=== PATIENT | female | born 1995 | race Caucasian/White ===

== ENCOUNTER 2021-09-26 10:03 | Emergency (ER) | payer OTHER ==
[2021-09-26 10:35] VITALS: TEMP 97.9; BMI 29.2
[2021-09-26] MEDS ORDERED: ALBUTEROL SO4 2.5/IPRATROPIUM 0.5 INH SOL 3 ML VIAL.NEB. NEB ONE (11:16)
[2021-09-26 12:22] VITALS: BP 127/75; PULSE 85
== END 2021-09-26 12:40 | disposition home or self-care (01) ==
LOC: JER 10:03
PROC: 3E0F7GC Introduction of Other Therapeutic Substance into Respiratory Tract, Via Natural or Artificial Opening (ICD-10-PCS; principal; 2021-09-26)
DX: J45.901 Unspecified asthma with (acute) exacerbation (principal)
CPT/HCPCS: 99283-25